=== PATIENT | female | born 1965 | race Caucasian/White ===

== ENCOUNTER 2021-05-21 15:53 | Inpatient (IN) | payer MEDICARE, OTHER ==
[~2021-05-21] VITALS: Ht 167.6 cm; Wt 117.9 kg
[2021-05-21] MEDS ORDERED: NALOXONE HCL 0.4 MG/ML AMPUL ONE (16:30)
[2021-05-21] MEDS ORDERED: NALOXONE HCL 0.4 MG/ML AMPUL IV ONE (16:30)
[2021-05-21] MEDS ORDERED: IOHEXOL-350 100 ML VIAL IV ONE (16:40)
[2021-05-21] MEDS ORDERED: IV NS 0.9% 250 ML IV ONE (16:42)
--- NOTE | 2021-05-21 16:43 | NUR ---
[facility] CALLED, SPOKE WITH YOGI CANO RN, LAST KNOWN WELL WAS [phone], FULLY AWAKE AND NO WEAKNESS PRIOR TO THAT TIME
[2021-05-21] MEDS ORDERED: SERT100T12 PO (17:09)
[2021-05-21] MEDS ORDERED: CLOZ100T32 PO (17:09)
[2021-05-21] MEDS ORDERED: TIMO5DRO18 EACHEYE (17:09)
[2021-05-21] MEDS ORDERED: OXCA600T8 PO (17:09)
[2021-05-21] MEDS ORDERED: TOPI25TA49 PO (17:09)
[2021-05-21] MEDS ORDERED: OMEP20CA15 PO (17:09)
[2021-05-21] MEDS ORDERED: DIPH25CA51 PO (17:09)
[2021-05-21] MEDS ORDERED: ATOR40TA PO (17:09)
[2021-05-21] MEDS ORDERED: GABA-532 PO (17:09)
[2021-05-21] MEDS ORDERED: ASPI-1420 PO (17:09)
[2021-05-21] MEDS ORDERED: GLIP10TA11 PO (17:09)
[2021-05-21] MEDS ORDERED: CLOZ100T PO (17:09)
[2021-05-21] MEDS ORDERED: LORA-259 PO (17:09)
[2021-05-21] MEDS ORDERED: MAGN400T26 PO (17:09)
[2021-05-21] MEDS ORDERED: SITA50TA PO (17:09)
[2021-05-21] MEDS ORDERED: LEVE100023 PO (17:09)
[2021-05-21] MEDS ORDERED: MULT-447 PO (17:09)
[2021-05-21] MEDS ORDERED: DIVA-76 PO (17:09)
[2021-05-21] MEDS ORDERED: METF-881 PO (17:09)
[2021-05-21] MEDS ORDERED: AMYL1CAP58 PO (17:09)
[2021-05-21] MEDS ORDERED: CHOL100099 PO (17:09)
[2021-05-21] MEDS ORDERED: DIVA500T2 PO (17:09)
[2021-05-21] MEDS ORDERED: DICL100G34 TP (17:09)
[2021-05-21 17:17] LABS: BASOPHILS % (AUTO) 0.4 % (0.0-2.0); EOSINOPHILS % (AUTO) 0.6 % (0.0-6.0); HEMATOCRIT 38 % (33-45); HEMOGLOBIN 12.6 g/dL (11.5-14.8); LYMPHOCYTES # (AUTO) 1.3 K/uL (0.8-4.8); MEAN CORPUSCULAR HGB CONC 33 g/dl (31.0-36.0); MEAN CORPUSCULAR VOLUME 92 fL (82-100); MONOCYTES # (AUTO) 0.7 K/uL (0.1-1.30); MONOCYTES % (AUTO) 8.2 % (2.0-12.0); NEUTROPHILS # (AUTO) 6.2 K/uL (1.8-8.9); NEUTROPHILS % (AUTO) 74.8 % (43.0-81.0); PLATELET COUNT (AUTO) 213 K/uL (150-450); RED BLOOD CELL COUNT(AUTO) 4.13 MIL/uL (4.0-5.2); WHITE BLOOD COUNT (AUTO) 8.2 K/uL (4.3-11.0)
[2021-05-21 17:28] LABS: SERUM AMMONIA 7 umol/L (11-32)
[2021-05-21 17:41] LABS: ALANINE AMINOTRANSFERASE 36 U/L (12-78); ALBUMIN 3.4 g/dL (3.4-5.0); ALKALINE PHOSPHATASE 76 U/L (46-116); ASPARTATE AMINOTRANSFERASE 18 U/L (15-37); BILIRUBIN,DIRECT 0.1 mg/dL (0.0-0.2); BILIRUBIN,TOTAL 0.2 mg/dL (0.2-1.0); CALCIUM, SERUM 9.2 mg/dL (8.5-10.1); CARBON DIOXIDE 26 mmol/L (21-32); CHLORIDE 105 mmol/L (98-107); GLUCOSE 165 mg/dL (74-106); POTASSIUM 3.1 mmol/L (3.5-5.1); SODIUM SERUM 142 mmol/L (136-145); TOTAL PROTEIN, SERUM 7.4 g/dL (6.4-8.2); UREA NITROGEN, BLOOD 17 mg/dL (7-18)
[2021-05-21 17:43] LABS: ACETAMINOPHEN < 10 ug/ml (10-30); ALCOHOL, BLOOD < 3 mg/dL (0-0)
--- NOTE | 2021-05-21 17:44 | NUR ---
PAGED [facility].
[2021-05-21 17:59] LABS: CHOLESTEROL 229 mg/dL (<200); HDL CHOLESTEROL 40 mg/dL (40-60); LDL 151 mg/dL (0-99); TRIGLYCERIDES 285 mg/dL (30-150)
--- NOTE | 2021-05-21 18:59 | NUR ---
COVID SWAB DONE AND SENT TO LAB
--- NOTE | 2021-05-21 18:59 | NUR ---
URINE COLLECTED AND SENT TO LAB
[2021-05-21 19:01] LABS: BILIRUBIN,URINE NEGATIVE (NEGATIVE); COLOR,URINE YELLOW (YELLOW); LEUKOCYTE ESTERASE ,URINE NEGATIVE (NEGATIVE); NITRITE, URINE NEGATIVE (NEGATIVE); PROTEIN,URINE NEGATIVE (NEGATIVE); UGLUCOSE 100 MG/DL mg/dL (NEGATIVE); UROBILINOGEN,URINE 0.2 EU/dL (0.2)
[2021-05-21 19:24] LABS: BACTERIA,URINE Few /HPF (None Seen); CALCIUM OXALATE CRYSTALS,UR Few /HPF (None Seen); RBC,URINE 0-2 /HPF (0-2); SQUAMOUS EPITHELIAL CELL,UR Few /HPF (None Seen)
--- NOTE | 2021-05-21 19:30 | NUR ---
PT REC'D AWAKE, A/O X4 ABLE TO MAKE NEEDS KNOWN. VSS.
[2021-05-21] MEDS ORDERED: ASPIRIN 81 MG TAB.CHEW ONE (19:42)
--- NOTE | 2021-05-21 19:55 | NUR ---
pt awake, nursing swallow eval completed, pt tolerated po intake well. no s/s of aspiration noted. will cont to monitor.
[2021-05-21] MEDS ORDERED: POTASSIUM CHLORIDE 20 MEQ TAB.PRT.SR PO ONE ×2 (20:00→20:09)
[2021-05-21] MEDS ORDERED: ASPIRIN 81 MG TAB.CHEW PO ONE (20:00)
[2021-05-21] MEDS ORDERED: DICLOFENAC TOPICAL 100 GM GEL..GM. TP PRN (21:00)
[2021-05-21] MEDS ORDERED: LORAZEPAM 1 MG TABLET PO PRN (21:00)
[2021-05-21] MEDS ORDERED: ONDANSETRON HCL/PF 4 MG/2 ML VIAL IVP PRN (21:00)
[2021-05-21] MEDS ORDERED: MAGNESIUM HYDROXIDE 30 ML UDC PO PRN (21:00)
[2021-05-21] MEDS ORDERED: Z GUARD REMEDY 2 OZ OINT TP PRN (21:00)
[2021-05-21] MEDS ORDERED: ZOLPIDEM TARTRATE 5 MG TABLET PO PRN (21:00)
[2021-05-21] MEDS ORDERED: ACETAMINOPHEN 325 MG TABLET PO PRN (21:00)
[2021-05-21] MEDS ORDERED: MAG HYDROX/AL HYDROX/SIMETH 30 ML UDC PO PRN (21:00)
--- NOTE | 2021-05-21 21:28 | NUR ---
pt is resting at this time, easily awakens. denies pain, no s/s of sob or resp distress noted. breathing even and unlabored. all needs attended at this time.
[2021-05-21] MEDS ORDERED: TOPIRAMATE 25 MG TABLET PO SCH (22:00)
[2021-05-21] MEDS ORDERED: ATORVASTATIN 40 MG TABLET PO SCH (22:00)
[2021-05-21] MEDS ORDERED: CLOZAPINE 100 MG TABLET PO SCH (22:00)
[2021-05-21] MEDS ORDERED: ENOXAPARIN SODIUM 40 MG/0.4 ML DISP.SYRIN SQ SCH (23:38)
[2021-05-21] MEDS ORDERED: ATORVASTATIN 40 MG TABLET ONE (23:43)
[2021-05-21] MEDS ORDERED: ENOXAPARIN SODIUM 40 MG/0.4 ML DISP.SYRIN SQ ONE (23:43)
[2021-05-21] MEDS ORDERED: SERTRALINE HCL 50 MG TABLET PO SCH (23:52)
[2021-05-21] MEDS: TIMOLOL 0.5% SOLN OPHTH 5 ML BOTTLE EACHEYE SCH (23:52)
[2021-05-21] MEDS ORDERED: OXCARBAZEPINE 150 MG TABLET ONE (23:52)
[2021-05-21] MEDS ORDERED: TOPIRAMATE 25 MG TABLET ONE (23:52)
[2021-05-21] MEDS ORDERED: DIVALPROEX SODIUM 500 MG TABLET.DR PO ONE (23:58)
[2021-05-21] MEDS ORDERED: DIVALPROEX SODIUM 250 MG TABLET.DR PO ONE (23:58)
[2021-05-21] MEDS ORDERED: LEVETIRACETAM (250 MG) 250 MG TABLET PO ONE (23:59)
[2021-05-22] MEDS: LEVETIRACETAM (250 MG) 250 MG TABLET PO SCH ×2 (00:01→09:40)
[2021-05-22] MEDS ORDERED: SERTRALINE HCL 50 MG TABLET ONE (00:21)
--- NOTE | 2021-05-22 01:51 | NUR ---
pt has taken all HS medications without difficulty, asleep, resting well. no s/s of distress noted. will cont to monitor
[2021-05-22 04:41] LABS: BASOPHILS % (AUTO) 0.3 % (0.0-2.0); HEMATOCRIT 40 % (33-45); HEMOGLOBIN 13.2 g/dL (11.5-14.8); LYMPHOCYTES # (AUTO) 1.6 K/uL (0.8-4.8); LYMPHOCYTES % (AUTO) 21.7 % (20.0-44.0); MEAN CORPUSCULAR HGB CONC 33 g/dl (31.0-36.0); MEAN CORPUSCULAR VOLUME 91 fL (82-100); MONOCYTES # (AUTO) 0.5 K/uL (0.1-1.30); MONOCYTES % (AUTO) 7.3 % (2.0-12.0); NEUTROPHILS # (AUTO) 5.1 K/uL (1.8-8.9); NEUTROPHILS % (AUTO) 68.7 % (43.0-81.0); PLATELET COUNT (AUTO) 220 K/uL (150-450); RED BLOOD CELL COUNT(AUTO) 4.35 MIL/uL (4.0-5.2); WHITE BLOOD COUNT (AUTO) 7.4 K/uL (4.3-11.0)
[2021-05-22 04:56] LABS: ALANINE AMINOTRANSFERASE 30 U/L (12-78); ALBUMIN 3.1 g/dL (3.4-5.0); ALKALINE PHOSPHATASE 69 U/L (46-116); ASPARTATE AMINOTRANSFERASE 16 U/L (15-37); BILIRUBIN,TOTAL 0.2 mg/dL (0.2-1.0); CALCIUM, SERUM 9.1 mg/dL (8.5-10.1); CARBON DIOXIDE 25 mmol/L (21-32); CHLORIDE 109 mmol/L (98-107); CREATININE 0.9 mg/dL (0.6-1.3); GLUCOSE 170 mg/dL (74-106); PHOSPHORUS 3.5 mg/dL (2.5-4.9); POTASSIUM 3.7 mmol/L (3.5-5.1); SODIUM SERUM 147 mmol/L (136-145); TOTAL PROTEIN, SERUM 7.2 g/dL (6.4-8.2); UREA NITROGEN, BLOOD 13 mg/dL (7-18)
[2021-05-22 05:20] LABS: THYROID STIMULATING HORMONE 0.521 uIU/mL (0.358-3.74)
[2021-05-22] MEDS ORDERED: PANTOPRAZOLE 40 MG TABLET.DR PO ONE (06:31)
[2021-05-22] MEDS ORDERED: PANTOPRAZOLE 40 MG TABLET.DR PO SCH (07:30)
[2021-05-22] MEDS: LIPASE/PROTEASE/AMYLASE 1 EACH CAPSULE.DR PO SCH ×2 (08:24→13:11)
[2021-05-22] MEDS ORDERED: GABAPENTIN 100 MG CAPSULE PO SCH (09:00)
[2021-05-22] MEDS ORDERED: ASPIRIN EC 325 MG TABLET.DR PO SCH (09:00)
[2021-05-22] MEDS ORDERED: MAGNESIUM OXIDE 400 MG TABLET PO SCH (09:00)
[2021-05-22] MEDS ORDERED: METFORMIN XR 500 MG TAB.SR.24H PO SCH (09:00)
[2021-05-22] MEDS ORDERED: LINAGLIPTIN 5 MG TABLET PO SCH (09:00)
[2021-05-22] MEDS ORDERED: DIVALPROEX SODIUM 250 MG TABLET.DR PO ONE (09:17)
[2021-05-22] MEDS ORDERED: TIMOLOL 0.5% SOLN OPHTH 5 ML BOTTLE ONE (09:17)
[2021-05-22] MEDS ORDERED: GABAPENTIN 100 MG CAPSULE ONE (09:17)
[2021-05-22] MEDS ORDERED: DIVALPROEX SODIUM 500 MG TABLET.DR PO ONE (09:17)
[2021-05-22] MEDS ORDERED: METFORMIN XR 500 MG TAB.SR.24H PO ONE (09:18)
[2021-05-22] MEDS ORDERED: ASPIRIN EC 325 MG TABLET.DR PO ONE (09:18)
[2021-05-22] MEDS ORDERED: LEVETIRACETAM (250 MG) 250 MG TABLET PO ONE (09:18)
[2021-05-22] MEDS: DIVALPROEX SODIUM 250 MG TABLET.DR PO SCH ×2 (09:39)
[2021-05-22] MEDS: DIVALPROEX SODIUM 500 MG TABLET.DR PO SCH ×2 (09:39)
[2021-05-22] MEDS: TIMOLOL 0.5% SOLN OPHTH 5 ML BOTTLE EACHEYE SCH (09:40)
[2021-05-22] MEDS: OXCARBAZEPINE 150 MG TABLET PO SCH ×2 (09:40)
[2021-05-22] MEDS ORDERED: CLOZAPINE 100 MG TABLET PO SCH (13:00)
[2021-05-22 13:49] VITALS: BP 109/61
--- NOTE | 2021-05-22 14:35 | NUR ---
ROOM 324-2
--- NOTE | 2021-05-22 14:57 | NUR ---
REPORT GIVEN TO KATELIN OLIVERA FOR [facility]
--- NOTE | 2021-05-22 17:11 | NUR ---
RN NOTE TRANSFER FROM ER FOR DISCHARGE. DISCHARGE ARRANGED BY [employer]. CALLED [facility] AND GAVE REPORT TO JAROD JACKSON ON [phone]. WAITING FOR TRANSPORTATION.
--- NOTE | 2021-05-22 18:39 | NUR ---
RN NOTE PATIENT DISCHARGED. PICKED UP BY 2 EMT's. IV ACCESS AND WRISTBAND WERE REMOVED. DISCHARGE INSTRUCTIONS AND HEALTH TEACHING GIVEN. PT VERBALIZED UNDERSTANDING.
== END 2021-05-22 18:35 | DRG 92 ==
LOC: ER 16:19 → TRANSITION 22:55 → UNDOADMIN 22:55 → TRANSITION 05-22 14:48 → TELE 05-22 14:48 → UNDODISIN 05-22 18:35
PROVIDERS: ADMIT Hospitalist; ATTEND Nurse Practitioner Acute Care
DX: G92 Toxic encephalopathy (principal); Z68.41 Body mass index [BMI] 40.0-44.9, adult; J44.9 Chronic obstructive pulmonary disease, unspecified; Z86.73 Personal history of transient ischemic attack (TIA), and cerebral infarction without residual deficits; Z90.49 Acquired absence of other specified parts of digestive tract; K52.9 Noninfective gastroenteritis and colitis, unspecified; F32.9 Major depressive disorder, single episode, unspecified; F41.9 Anxiety disorder, unspecified; G40.909 Epilepsy, unspecified, not intractable, without status epilepticus; I10 Essential (primary) hypertension; Z20.822 Contact with and (suspected) exposure to COVID-19; E11.9 Type 2 diabetes mellitus without complications; E78.5 Hyperlipidemia, unspecified; E87.6 Hypokalemia; F25.9 Schizoaffective disorder, unspecified; K21.9 Gastro-esophageal reflux disease without esophagitis; Z79.84 Long term (current) use of oral hypoglycemic drugs; E66.01 Morbid (severe) obesity due to excess calories; T43.505A Adverse effect of unspecified antipsychotics and neuroleptics, initial encounter; Y92.89 Other specified places as the place of occurrence of the external cause
CPT/HCPCS: 36415; 70450-TC; 70496-TC; 70498-TC; 71045-TC; 80048-TC; 80053-TC; 80061-TC; 80076-TC; 81001; 82140-TC; 82962-TC; 83880; 84100-TC; 84443-TC; 84484-TC; 85025-TC; 85730-TC; 87081-TC; C9803; G0378; G0480; J1650; J2310; J2405; J7050; Q9967

== ENCOUNTER 2025-02-12 15:22 | Inpatient (IN) | payer MEDICARE, OTHER ==
[~2025-02-12] VITALS: Ht 167.6 cm; Wt 107.5 kg
[~2025-02-12 15:22] MED LIST: AMYL1CAP58 PO; ASPI-1420 PO; ATOR40TA PO; CHOL100099 PO; CLOZ100T PO; CLOZ100T32 PO; DICL100G34 TP; DIPH25CA51 PO; DIVA-76 PO; DIVA500T2 PO; GABA-532 PO; GLIP10TA11 PO; LEVE100023 PO; LORA-259 PO; MAGN400T26 PO; METF-881 PO; MULT-447 PO; OMEP20CA15 PO; OXCA600T8 PO; SERT100T12 PO; SITA50TA PO; TIMO5DRO18 EACHEYE; TOPI25TA49 PO
[2025-02-12] MEDS ORDERED: IOHEXOL-350 100 ML VIAL IV ONE (15:38)
[2025-02-12] MEDS ORDERED: CT SWABBABLE VALVE TRANS SET 1 EA INFUS.SET MC ONE (15:38)
[2025-02-12] MEDS ORDERED: IV NS 0.9% 250 ML IV ONE (15:39)
[2025-02-12 15:53] LABS: BASOPHILS % (AUTO) 0.2 % (0.0-2.0); EOSINOPHILS # (AUTO) 0.1 K/uL (0.0-0.7); EOSINOPHILS % (AUTO) 1.7 % (0.0-6.0); HEMATOCRIT 38 % (33-45); HEMOGLOBIN 12.6 g/dL (11.5-14.8); LYMPHOCYTES % (AUTO) 20.2 % (20.0-44.0); MEAN CORPUSCULAR HEMOGLOBIN 30 PG (26.0-33.0); MEAN CORPUSCULAR HGB CONC 33 g/dl (31.0-36.0); MEAN CORPUSCULAR VOLUME 90 fL (82-100); MONOCYTES # (AUTO) 0.6 K/uL (0.1-1.30); MONOCYTES % (AUTO) 10.9 % (2.0-12.0); NEUTROPHILS # (AUTO) 3.4 K/uL (1.8-8.9); PLATELET COUNT (AUTO) 246 K/uL (150-450); RED BLOOD CELL COUNT(AUTO) 4.25 MIL/uL (4.0-5.2); RED CELL DISTRIBUTION WIDTH 15.3 % (11.5-15.0); WHITE BLOOD COUNT (AUTO) 5.1 K/uL (4.3-11.0)
[2025-02-12 16:00] LABS: CALCIUM, SERUM 9.2 mg/dL (8.5-10.1); CREATININE 0.9 mg/dL (0.6-1.3)
[2025-02-12 16:31] LABS: INR 0.97 (0.91-1.10); PROTHROMBIN TIME 10.3 SECS (9.2-11.1)
[2025-02-12] MEDS ORDERED: LEVE500T20 PO (16:45)
[2025-02-12] MEDS ORDERED: LATA2.5D15 EACHEYE (16:45)
[2025-02-12] MEDS ORDERED: DORZ10DR13 EACHEYE (16:45)
[2025-02-12] MEDS ORDERED: GLIP5TAB13 PO (16:45)
[2025-02-12] MEDS ORDERED: MODAFINIL PO (16:45)
[2025-02-12] MEDS ORDERED: SERT50TA12 PO (16:45)
[2025-02-12] MEDS ORDERED: CHOL100043 PO (16:45)
[2025-02-12 16:58] LABS: APPEARANCE,URINE SLIGHTLY CLOUDY (CLEAR); BILIRUBIN,URINE Negative (NEGATIVE); BLOOD, URINE Trace-intact Ery/uL (NEGATIVE); COLOR,URINE YELLOW (YELLOW); KETONES,URINE Trace mg/dL (NEGATIVE); LEUKOCYTE ESTERASE ,URINE Small (NEGATIVE); PROTEIN,URINE 100 mg/dl (NEGATIVE); UGLUCOSE Negative (NEGATIVE); UROBILINOGEN,URINE 0.2 EU/dL (0.2)
[2025-02-12] MEDS: DIVALPROEX SODIUM 500 MG TABLET.DR PO SCH (17:00)
[2025-02-12] MEDS: TIMOLOL MAL/DORZOLAM HCL OPHTH 10 ML BOTTLE EACHEYE SCH (17:00)
[2025-02-12 17:02] LABS: NITRITE, URINE NEGATIVE (NEGATIVE)
[2025-02-12] MEDS: BLOOD SUGAR DIAGNOSTIC 1 EACH STRIP VI SCH (17:30)
[2025-02-12] MEDS ORDERED: *INSULIN REGULAR(HUMULIN R)HUM 100 UNIT/ML VIAL SQ PRN (17:30)
[2025-02-12] MEDS ORDERED: DEXTROSE 50%-WATER 50 ML DISP.SYRIN IV PRN (17:30)
[2025-02-12 17:41] LABS: AMPHETAMINE, URINE NEGATIVE (NEGATIVE); BARBITURATE, URINE NEGATIVE (NEGATIVE); BENZODIAZEPINE, URINE NEGATIVE (NEGATIVE); CANNABINOID, URINE NEGATIVE (NEGATIVE); COCCAINE, URINE NEGATIVE (NEGATIVE); OPIATE, URINE NEGATIVE (NEGATIVE); PHENCYCLIDINE SCREEN,URINE NEGATIVE (NEGATIVE)
[2025-02-12 17:59] LABS: ADD URINE CULTURE YES; BACTERIA,URINE Moderate /HPF (None Seen); RBC,URINE 0-2 /HPF (0-2); SQUAMOUS EPITHELIAL CELL,UR 0-2 /HPF (None Seen)
[2025-02-12 18:05] VITALS: BP 124/48; TEMP 98.1; O2SAT 99
[2025-02-12 20:00] VITALS: BP 132/59; TEMP 97.7; O2SAT 98
[2025-02-12] MEDS: CEFTRIAXONE 1 G in IV D5W 50 ML IV SCH (21:01)
[2025-02-12] MEDS: ATORVASTATIN 40 MG TABLET PO SCH (21:02)
[2025-02-12] MEDS: LATANOPROST EYE DROP 0.005% 2.5 ML BOTTLE EACHEYE SCH (21:06)
[2025-02-12] MEDS: IV D5/0.45 NACL 1,000 ML IV PRN (21:44)
[2025-02-13] VITALS: BP 143/64; TEMP 98.6; O2SAT 94
[2025-02-13 04:00] VITALS: BP 126/61; TEMP 98.2; O2SAT 95
[2025-02-13 06:57] LABS: BASOPHILS % (AUTO) 0.4 % (0.0-2.0); EOSINOPHILS # (AUTO) 0.1 K/uL (0.0-0.7); EOSINOPHILS % (AUTO) 2.3 % (0.0-6.0); HEMATOCRIT 37 % (33-45); HEMOGLOBIN 12.3 g/dL (11.5-14.8); LYMPHOCYTES # (AUTO) 1.5 K/uL (0.8-4.8); LYMPHOCYTES % (AUTO) 24.9 % (20.0-44.0); MEAN CORPUSCULAR HEMOGLOBIN 30 PG (26.0-33.0); MEAN CORPUSCULAR HGB CONC 34 g/dl (31.0-36.0); MEAN CORPUSCULAR VOLUME 89 fL (82-100); MONOCYTES # (AUTO) 0.8 K/uL (0.1-1.30); MONOCYTES % (AUTO) 13.1 % (2.0-12.0); NEUTROPHILS # (AUTO) 3.5 K/uL (1.8-8.9); NEUTROPHILS % (AUTO) 59.3 % (43.0-81.0); PLATELET COUNT (AUTO) 227 K/uL (150-450); RED BLOOD CELL COUNT(AUTO) 4.12 MIL/uL (4.0-5.2)
[2025-02-13 07:06] LABS: CALCIUM, SERUM 8.8 mg/dL (8.5-10.1); CREATININE 0.8 mg/dL (0.6-1.3); POTASSIUM 3.9 mmol/L (3.5-5.1)
[2025-02-13] MEDS: PANTOPRAZOLE 40 MG TABLET.DR PO SCH (07:30)
[2025-02-13 08:00] VITALS: BP 122/61; TEMP 97.9; O2SAT 99
[2025-02-13] MEDS: LEVETIRACETAM (250 MG) 250 MG TABLET PO SCH (09:00)
[2025-02-13] MEDS: ASPIRIN EC 81 MG TABLET.DR PO SCH (09:00)
[2025-02-13] MEDS: MULTIVIT W/MINERALS 1 TAB TABLET PO SCH (09:00)
[2025-02-13] MEDS: SERTRALINE HCL 50 MG TABLET PO SCH (09:00)
[2025-02-13] MEDS: CHOLECALCIFEROL 1,000 UNIT TABLET (VIT D3) PO SCH (09:00)
[2025-02-13] MEDS: CLOPIDOGREL BISULFATE 75 MG TABLET PO SCH (09:00)
[2025-02-13 12:00] VITALS: BP 133/61; TEMP 98.1; O2SAT 98
[2025-02-13 16:00] VITALS: BP 115/58; TEMP 98.1; O2SAT 98
[2025-02-13] MEDS: INSULIN REGULAR, HUMAN 100 UNIT/ML 3 ML VIAL SQ PRN (18:37)
[2025-02-13 20:00] VITALS: BP 118/54; TEMP 98.4; O2SAT 97
[2025-02-14] VITALS: BP 115/49; TEMP 98.4; O2SAT 96
[2025-02-14 04:00] VITALS: BP 110/66; TEMP 98.2; O2SAT 98
[2025-02-14] MEDS ORDERED: ACETAMINOPHEN 650 MG/20.3 ML UDC PO PRN (05:00)
[2025-02-14] MEDS: ACETAMINOPHEN 325 MG TABLET PO PRN (05:14)
[2025-02-14 08:00] VITALS: BP 116/64; TEMP 98.2; O2SAT 98
[2025-02-14] MEDS ORDERED: ATOR40TA PO (09:44)
[2025-02-14] MEDS ORDERED: CLOP75TA15 PO (09:44)
== END 2025-02-14 17:02 | disposition home or self-care (01) | DRG 69 ==
LOC: ER 15:24 → TELE1 16:52 → MEDSG1 02-14 08:10
PROVIDERS: ADMIT Nurse Practitioner Acute Care; ATTEND Nurse Practitioner Acute Care
DX: G45.9 Transient cerebral ischemic attack, unspecified (principal); E11.9 Type 2 diabetes mellitus without complications; I10 Essential (primary) hypertension; E66.9 Obesity, unspecified; F25.9 Schizoaffective disorder, unspecified; G40.909 Epilepsy, unspecified, not intractable, without status epilepticus; Z88.2 Allergy status to sulfonamides; Z86.73 Personal history of transient ischemic attack (TIA), and cerebral infarction without residual deficits; Z79.84 Long term (current) use of oral hypoglycemic drugs; E78.5 Hyperlipidemia, unspecified; R20.0 Anesthesia of skin; R29.702 NIHSS score 2; Z68.38 Body mass index [BMI] 38.0-38.9, adult; H40.9 Unspecified glaucoma; L73.2 Hidradenitis suppurativa
CPT/HCPCS: 36415; 70450-TC; 70496-TC; 70498-TC; 70547-TC; 70551-TC; 71045-TC; 72141-TC; 80048-TC; 80061-TC; 81001; 82962-TC; 85025-TC; 85730-TC; 87086-TC; 92526; 92611-TC; 97110-TC; 97116-TC; 97530-TC; 97535-TC; A4223; A6403; G0378; J0696; J1815; J3490; J7050; J7060; Q9967